=== PATIENT | male | born 1990 | race Caucasian/White ===

== ENCOUNTER → 2020-11-07 | Day surgery (SDC) | payer OTHER ==
[~2020-11-07] MED LIST: AMITRIPTYLINE 225 MG PO; ANTIHEMOPHILIC FACTOR RECOMBINANT IN; CYCLOBENZAPRINE5 MG PO; ELAVIL25 MG PO; GUANFACINE HCL E4 MG PO; PAXIL40 MG PO; SEROQUEL XR300 MG PO
[2020-11-07 08:30] LABS: EOSINOPHIL 1.5 % (0-5); HGB 14.9 g/dl (13.2-18.0); LYMPHOCYTE 28.1 % (15-48); MCH 33.2 pg (25.0-31.0); MCHC 35.5 g/dL (32.0-36.0); MCV 93.5 fL (78.0-100.0); MONOCYTE 10.6 % (0-12); NEUTROPHIL 57.6 % (41-80); NRBC 0; PLT 128 K/uL (150-400); RBC 4.49 M/uL (4.70-6.00); RDW 12.4 % (11.5-14.0); WBC 4.8 K/uL (4.0-10.5)
[2020-11-07 08:44] LABS: INR 1.01 (0.9-1.2); PROTHROMBIN TIME 12.6 SECONDS (11.4-13.6); PTT 32.4 SECONDS (22.2-34.7)
== END | disposition home or self-care (01) ==
LOC: FAS 06:51
PROVIDERS: Oral & Maxillofacial Surgery
DX: K02.63 Dental caries on smooth surface penetrating into pulp (principal); D66 Hereditary factor VIII deficiency; R01.1 Cardiac murmur, unspecified; Z20.822 Contact with and (suspected) exposure to COVID-19; Z88.6 Allergy status to analgesic agent
CPT/HCPCS: 36415; 85025; 85610; 85730; J1100; J1885; J2250; J2405; J2704; J3010; J7120